=== PATIENT | female | born 1995 | race Caucasian/White ===

== ENCOUNTER 2017-01-24 08:36 | Emergency (ER) | payer BC ==
[2017-01-24] MEDS ORDERED: Ketorolac INJ* 60 MG/2 ML VIAL IM ONE (09:09)
[2017-01-24] MEDS ORDERED: Cephalexin CAP* 500 MG PO ONE (09:10)
[2017-01-24 09:22] VITALS: BP 113/56
--- NOTE | 2017-01-24 09:30 | ED ---
Skin Complaint - HPI Summary HPI Summary: 22 female presents to ED with complaints of a hard, tender nodule in her genital area that began ~ 1 week. Patient states she feels as though it is getting worse. She was seen by [facility] on Thursday who told her it was a bartholin per patient and to apply warm compresses. Patient has been taking ibuprofen, which helps her some. Denies known trauma or injury. Admits to having abrasions in the area however have since healed. Denies any MRSA history. No other PMHx. No medications. No discharge, fever/chills, vaginal symptoms or urinary symptoms. Denies abdominal pain. Has never had anything like this in the past. No other complaints. - History of Current Complaint Chief Complaint: EDGeneral Time Seen by Provider: 01/24/17 08:50 Stated Complaint: ABSCESS Hx Obtained From: Patient Hx Last Menstrual Period: 05/29/15 Onset/Duration: Started Weeks Ago - 1 Skin Exposure Onset/Duration: Weeks Ago - 1 Timing: Constant Onset Severity: Mild Current Severity: Moderate Pain Intensity: 7 Pain Scale Used: 0-10 Numeric - with touching Skin Location: Other: - genitalia Aggravating Symptom(s): Touch Alleviating Symptom(s): Treatment HOME DESIGNER: - warm compresses Associated Signs & Symptoms: Negative - Allergy/Home Medications Allergies/Adverse Reactions: Allergies Allergy/AdvReac Type Severity Reaction Status Date / Time cat dander Allergy Runny Nose Uncoded 06/17/15 12:19 PMH/Surg Hx/FS Hx/Imm Hx Endocrine/Hematology History: Denies: Hx Diabetes, Hx Thyroid Disease Cardiovascular History: Denies: Hx Hypercholesterolemia, Hx Hypertension, Hx Peripheral Vascular Disease Musculoskeletal History: Denies: Hx Arthritis, Hx Rheumatoid Arthritis, Hx Osteoporosis Sensory History: Denies: Hx Cataracts, Hx Contacts or Glasses, Hx Glaucoma Opthamlomology History: Denies: Hx Cataracts, Hx Contacts or Glasses, Hx Glaucoma Neurological History: Denies: Hx Headaches, Hx Seizures, Hx Transient Ischemic Attacks (TIA) Psychiatric History: Reports: Hx Bipolar Disorder Denies: Hx Anxiety, Hx Depression - Surgical History Surgery Procedure, Year, and Place: n/a - Immunization History Immunizations Up to Date: Yes Infectious Disease History: No Infectious Disease History: Denies: Traveled Outside the [place] in Last 30 Days - Family History Known Family History: Positive: None - Social History Alcohol Use: Occasionally Hx Substance Use: No Substance Use Type: Reports: None, Marijuana Substance Use Comment - Amount & Last Used: weekly Hx Tobacco Use: No Smoking Status (MU): Current Some Day Smoker Review of Systems Constitutional: Negative Cardiovascular: Negative Respiratory: Negative Gastrointestinal: Negative Musculoskeletal: Negative Positive: Other - cyst genitalia All Other Systems Reviewed And Are Negative: Yes Physical Exam Triage Information Reviewed: Yes Vital Signs On Initial Exam: Initial Vitals Temp Pulse Resp BP Pulse Ox 98.4 F 69 18 112/57 100 01/24/17 08:42 01/24/17 08:42 01/24/17 08:42 01/24/17 08:42 01/24/17 08:42 Vital Signs Reviewed: Yes Appearance: Positive: Well-Appearing, No Pain Distress, Well-Nourished Skin: Positive: Warm, Skin Color Reflects Adequate Perfusion, Dry, Other - external genitalia: firm nodule/cyst above/region of clitoris, without erythema , warmth, fluctuance. tender to touch. about the size of an almond. rest of exam normal.. Negative: Cold, Numb, Cyanosis @, Pale, Erythema @ Head/Face: Positive: Normal Head/Face Inspection Eyes: Positive: Conjunctiva Clear ENT: Positive: Hearing grossly normal Neck: Positive: Supple, Nontender, No Lymphadenopathy Respiratory/Lung Sounds: Positive: Clear to Auscultation, Breath Sounds Present. Negative: Rales, Rhonchi, Wheezes Cardiovascular: Positive: Normal, RRR, Pulses are Symmetrical in both Upper and Lower Extremities. Negative: Murmur, Rub Abdomen Description: Positive: Nontender, No Organomegaly, Soft. Negative: Bruit, CVA Tenderness (R), CVA Tenderness (L), McBurney's Point Tenderness, Peritoneal Signs Bowel Sounds: Positive: Present Musculoskeletal: Positive: Normal, Strength/ROM Intact Neurological: Positive: Normal, Sensory/Motor Intact, Alert, Oriented to Person Place, Time, CN Intact II-III, Normal Gait - [place] Coma Scale Coma Scale Total: 15 Diagnostics - Vital Signs Vital Signs Temp Pulse Resp BP Pulse Ox 01/24/17 09:22 82 17 113/56 100 01/24/17 09:00 80 113/56 98 01/24/17 08:48 65 100 01/24/17 08:46 112/57 01/24/17 08:42 98.4 F 69 18 112/57 100 - Laboratory Lab Statement: Any lab studies that have been ordered have been reviewed, and results considered in the medical decision making process. Course/Dx - Course Course Of Treatment: given toradol for pain and inflammation. will try trial of keflex. No concern for abscess at this time. Continue warm compresses and pain management. Educated and aware of worsening signs and symptoms. No other symptoms/complaints. Normal vitals and PE findings. Follow up with OBGYN. Understands and agrees with plan. - Differential Diagnoses - Skin Complaint Differential Diagnoses: Abscess, Cellulitis, Other - cyst, bartholin cyst - Diagnoses Provider Diagnoses: Cyst - Physician Notifications Discussed Care Of Patient With: Dr Carmichael Discharge - Discharge Plan Condition: Stable Disposition: HOME Prescriptions: Cephalexin CAP* [Keflex CAP*] 500 mg PO TID #29 cap Patient Education Materials: Cyst (ED) Referrals: Lena Montiel MD [Primary Care Provider] - Gavin Torres MD [Medical Doctor] - Additional Instructions: Take prescribed antibiotic as directed. Ibuprofen/tylenol for pain only as needed, starting tomorrow. Continue warm compresses. Call and make an appointment with OBGYN. Return if any new or worsening symptoms.
== END 2017-01-24 09:20 | disposition home or self-care (01) ==
LOC: ED 08:36
DX: N90.7 Vulvar cyst (principal); F31.9 Bipolar disorder, unspecified; F17.200 Nicotine dependence, unspecified, uncomplicated
CPT/HCPCS: 96372; 99282; A9270-GY; J1885

== ENCOUNTER 2017-01-26 08:58 | Emergency (ER) | payer BC ==
[2017-01-26 10:14] VITALS: BP 114/53
[2017-01-26] MEDS ORDERED: Sulfamethox/Trimethoprim DS 800/160* TAB PO ONE (11:15)
--- NOTE | 2017-01-26 11:42 | ED ---
Skin Complaint - HPI Summary HPI Summary: 22 female presents to ED with complaints of a hard, tender nodule in her genital area that began ~ 1 week ago. Patient states she feels as though it is getting worse over the past 2 days. Was seen She was seen by me in ED two days ago however states it has worsened, red, tender and more swollen. Also admits to having a small amount of drainage. Has been taking prescribed keflex and applying warm compresses. Patient has been taking ibuprofen, which helps her some. Denies known trauma or injury. Denies any MRSA history. No other PMHx. No medications. No discharge, fever/chills, vaginal symptoms or urinary symptoms. Denies abdominal pain. Has never had anything like this in the past. No other complaints. - History of Current Complaint Chief Complaint: EDRashSkinAbscess Time Seen by Provider: 01/26/17 10:35 Stated Complaint: PELVIC PAIN Hx Obtained From: Patient Hx Last Menstrual Period: 05/29/15 Onset/Duration: Started Weeks Ago - 1, Still Present, Worse Since Skin Exposure Onset/Duration: Weeks Ago - 1 Timing: Constant Onset Severity: Moderate Current Severity: Moderate Pain Intensity: 6 Pain Scale Used: 0-10 Numeric Skin Location: Other: - labia Character: Swelling, Redness, Raised, Painful Aggravating Symptom(s): Touch Alleviating Symptom(s): Nothing Associated Signs & Symptoms: Drainage - small amount, not currently - Allergy/Home Medications Allergies/Adverse Reactions: Allergies Allergy/AdvReac Type Severity Reaction Status Date / Time cat dander Allergy Runny Nose Uncoded 01/26/17 09:04 PMH/Surg Hx/FS Hx/Imm Hx Endocrine/Hematology History: Denies: Hx Diabetes, Hx Thyroid Disease Cardiovascular History: Denies: Hx Hypercholesterolemia, Hx Hypertension, Hx Peripheral Vascular Disease Musculoskeletal History: Denies: Hx Arthritis, Hx Rheumatoid Arthritis, Hx Osteoporosis Sensory History: Denies: Hx Cataracts, Hx Contacts or Glasses, Hx Glaucoma Opthamlomology History: Denies: Hx Cataracts, Hx Contacts or Glasses, Hx Glaucoma Neurological History: Denies: Hx Headaches, Hx Seizures, Hx Transient Ischemic Attacks (TIA) Psychiatric History: Reports: Hx Bipolar Disorder Denies: Hx Anxiety, Hx Depression - Surgical History Surgery Procedure, Year, and Place: n/a - Immunization History Immunizations Up to Date: Yes Infectious Disease History: No Infectious Disease History: Denies: Traveled Outside the [place] in Last 30 Days - Family History Known Family History: Positive: None - Social History Alcohol Use: Occasionally Hx Substance Use: No Substance Use Type: Reports: None, Marijuana Substance Use Comment - Amount & Last Used: weekly Hx Tobacco Use: No Smoking Status (MU): Current Some Day Smoker Review of Systems Constitutional: Negative Cardiovascular: Negative Respiratory: Negative Gastrointestinal: Negative Genitourinary: Negative Positive: Other - labial abscess All Other Systems Reviewed And Are Negative: Yes Physical Exam Triage Information Reviewed: Yes Vital Signs On Initial Exam: Initial Vitals Temp Pulse Resp BP Pulse Ox 98.6 F 68 15 118/53 98 01/26/17 09:05 01/26/17 09:05 01/26/17 09:05 01/26/17 09:05 01/26/17 09:05 Vital Signs Reviewed: Yes Appearance: Positive: Well-Appearing - anxious, No Pain Distress, Well-Nourished Skin: Positive: Warm, Skin Color Reflects Adequate Perfusion, Dry, Erythema @ - and firm nodule size of almond noted at left proximal labia, appears more erythematous and edematous than 2 days ago, however no significant abscess with fluctuance appreciated, firm small nodule. no drainage at this time, Other - rest of skin exam normal. Negative: Numb, Cyanosis @, Pale, Weeping Skin/ Lesions Head/Face: Positive: Normal Head/Face Inspection Eyes: Positive: Conjunctiva Clear ENT: Positive: Hearing grossly normal, Pharynx normal, TMs normal Neck: Positive: Supple, Nontender, No Lymphadenopathy Respiratory/Lung Sounds: Positive: Clear to Auscultation, Breath Sounds Present. Negative: Decreased Breath Sounds, Rales, Rhonchi, Wheezes Cardiovascular: Positive: Normal, RRR, Pulses are Symmetrical in both Upper and Lower Extremities. Negative: Murmur, Rub Abdomen Description: Positive: Nontender, Soft Pelvic Exam: Positive: external exam normal - other than abscess noted above Musculoskeletal: Positive: Normal, Strength/ROM Intact Neurological: Positive: Normal, Sensory/Motor Intact, Alert, Oriented to Person Place, Time, Normal Gait - [place] Coma Scale Coma Scale Total: 15 Diagnostics - Vital Signs Vital Signs Temp Pulse Resp BP Pulse Ox 01/26/17 10:11 98.6 F 64 15 114/53 100 01/26/17 09:05 98.6 F 68 15 118/53 98 - Laboratory Lab Statement: Any lab studies that have been ordered have been reviewed, and results considered in the medical decision making process. Course/Dx - Course Course Of Treatment: normal vitals, afebrile, not tachycardic. due to PE findings of firm, small nodule without obvious fluctuance and small in size- ordered ultrasound to determine if there is a fluctuant abscess to be I&D'd however patient stated her OBGYN called and made an appointment for 2pm today and she did not want to wait for the u/s and I&D, if required. was given bactrim dose while in ED. told to continue keflex and take bactrim additionally as it may be MRSA. this may be sufficient to clear infection at this time. no drainage available to culture. patient wanted to leave prior to rest of exam including US and I&D as she wanted to go to the OBGYN. Encouraged to stay as this may be necessary however patient insited on going to have it completed at OBGYN as she did not want to wait. Follow up. Aware of worsening signs and symptoms. continue warm compresses. return if needed. - Differential Diagnoses - Skin Complaint Differential Diagnoses: Abscess, Cellulitis, Other - cyst - Diagnoses Provider Diagnoses: Cellulitis of labia majora, Abscess of labia Discharge - Discharge Plan Condition: Stable Disposition: HOME Prescriptions: Sulfamethox/Trimethoprim DS* [Bactrim DS 800/160 TAB*] 1 tab PO BID #19 tab Patient Education Materials: Abscess (ED), Abscess Follow-up (ED), Cellulitis ( ED) Referrals: No Primary Care Phys,NOPCP [Primary Care Provider] - [facility] [place] [facility] [Outside] Additional Instructions: Take additionally prescribed medication starting at bedtime. Continue taking previously prescribed antibiotics. Continue warm compresses. Follow up with OBGYN at your appointment at 2 today. Any new or worsening signs/symptoms please seek medical attention promptly. This may need to be drained in the near future.
== END 2017-01-26 11:48 | disposition home or self-care (01) ==
LOC: ED 08:58
DX: N76.2 Acute vulvitis (principal); N76.4 Abscess of vulva
CPT/HCPCS: 99282; A9270-GY

== ENCOUNTER 2018-07-18 02:38 | Emergency (ER) | payer BC ==
[2018-07-18 03:35] VITALS: BP 125/72
== END 2018-07-18 03:36 | disposition left against medical advice (07) ==
LOC: ED 02:38
DX: Z53.21 Procedure and treatment not carried out due to patient leaving prior to being seen by health care provider (principal)

== ENCOUNTER 2018-07-18 11:08 | Emergency (ER) | payer BC ==
[2018-07-18 11:19] VITALS: BP 112/59
--- NOTE | 2018-07-18 11:49 | UC ---
Respiratory Complaint HPI - HPI Summary HPI Summary: started feeling sick 5 days ago with URI symps, tried mucinex. since yesterday much worse, now eyes red and R ear painful, also facial pain and frontal headache - History of Current Complaint Chief Complaint: UCRespiratory Stated Complaint: EARPAIN/EYE Time Seen by Provider: 07/18/18 11:25 Hx Obtained From: Patient Hx Last Menstrual Period: 06/13/18 ?: No Onset/Duration: Gradual Onset Timing: Constant Severity Initially: Mild Severity Currently: Moderate Pain Intensity: 5 Character: Cough: Productive Aggravating Factors: Recumbent Position Alleviating Factors: Nothing Associated Signs And Symptoms: Positive: Fever, Nasal Congestion, Sinus Discomfort. Negative: Hemoptysis - Allergies/Home Medications Allergies/Adverse Reactions: Allergies Allergy/AdvReac Type Severity Reaction Status Date / Time cat dander Allergy Runny Nose Uncoded 07/18/18 11:19 PMH/Surg Hx/FS Hx/Imm Hx Previously Healthy: Yes - Surgical History Surgical History: Yes Surgery Procedure, Year, and Place: cyst removed from mouth - Family History Known Family History: Positive: None Negative: Hypertension, Diabetes - Social History Occupation: Employed Part-time, Student Lives: With Family Alcohol Use: Occasionally Substance Use Type: None Substance Use Comment - Amount & Last Used: weekly Smoking Status (MU): Former Smoker Review of Systems All Other Systems Reviewed And Are Negative: Yes Constitutional: Positive: Fatigue Skin: Positive: Negative. Negative: Rash Eyes: Positive: Eye Redness. Negative: Drainage ENT: Positive: Ear Ache, Sinus Congestion, Sinus Pain/Tenderness Respiratory: Positive: Cough Cardiovascular: Positive: Negative Gastrointestinal: Positive: Negative Musculoskeletal: Positive: Negative Neurological: Positive: Headache Psychological: Positive: Negative Is Patient Immunocompromised?: No Physical Exam Triage Information Reviewed: Yes Appearance: Well-Appearing, Well-Nourished Vital Signs: Initial Vital Signs Temp 98 F 07/18/18 11:15 Pulse 83 07/18/18 11:15 Resp 16 07/18/18 11:15 BP 112/59 07/18/18 11:15 Pulse Ox 98 07/18/18 11:15 Vital Signs Reviewed: Yes Eyes: Positive: Conjunctiva Inflamed. Negative: Discharge ENT: Positive: Pharyngeal erythema, Nasal congestion, TM bulging, TM red, Sinus tenderness, Other - PND. Negative: Tonsillar swelling Neck exam: Normal Neck: Positive: No Lymphadenopathy Respiratory Exam: Normal Respiratory: Positive: Lungs clear Cardiovascular Exam: Normal Cardiovascular: Positive: RRR Abdominal Exam: Normal Musculoskeletal Exam: Normal Neurological Exam: Normal Neurological: Positive: Alert Psychological Exam: Normal Skin Exam: Normal Skin: Negative: Rashes Respiratory Course/Dx - Differential Dx/Diagnosis Differential Diagnosis/HQI/PQRI: Influenza, Lower Resp Infection, Sinusitis Provider Diagnosis: Sinusitis, Otitis media Discharge - Sign-Out/Discharge Documenting (check all that apply): Patient Departure All imaging exams completed and their final reports reviewed: No Studies - Discharge Plan Condition: Good Disposition: HOME Prescriptions: Amoxicillin/Clavulanate TAB* [Augmentin TAB 875*] 875 mg PO BID #20 tab Patient Education Materials: Sinusitis (ED) Print Language: BOT[place] Forms: *School Release, *Work Release Referrals: Lavern Sultana NP [Primary Care Provider] - 3 Days (if no better) Additional Instructions: drink plenty of fluids start augmentin antibiotic as prescribed ibuprofen 600mg every 6 hours for fever and pain take sudafed (from behind the counter) - Billing Disposition and Condition Condition: GOOD Disposition: Home - Attestation Statements Provider Attestation: I was available for consult. This patient was seen by the [facility]. The patient was not presented to , seen by or examined by mt -Osiris Gottlieb MD
== END 2018-07-18 12:08 | disposition home or self-care (01) ==
LOC: UCEAST 11:08
DX: J32.9 Chronic sinusitis, unspecified (principal); H66.91 Otitis media, unspecified, right ear; R50.9 Fever, unspecified; R53.83 Other fatigue; R05 Cough; Z87.891 Personal history of nicotine dependence
CPT/HCPCS: 99212; G0463

== ENCOUNTER 2018-07-29 17:48 | Emergency (ER) | payer BC ==
[2018-07-29] MEDS ORDERED: cefTRIAXone VIAL(*) 250 MG VIAL IM ONE (19:08)
[2018-07-29] MEDS ORDERED: Azithromycin TAB* 250 MG PO ONE (19:08)
--- NOTE | 2018-07-29 19:09 | ED ---
GI/ HPI - HPI Summary HPI Summary: Pt is a 23 y/o female who presents to the ED c/o pelvic pain. Shes been having intermittent pelvic pain over the past few months, described as sharp and stabbing. 4 days ago she began having constant pelvic pain, rated a 6/10 in severity. Pt also c/o brown-sabine bloody vaginal discharge, rectal pain, and rectal swelling. Her rectal pain is made worse with BMs. Pt reports mild vaginal pain with sexual activity. She denies any fevers, chills, vaginal itching, vaginal burning, dysuria, CP, or SOB. Pt had chlamydia several years ago and states that these symptoms are similar. She reports having unprotected intercourse several times, with the last time being two months ago. She has taken Advil without relief of pain. Pt is currently still on Amoxicillin for a UTI. LNMP 2 weeks ago, and her menstrual cycle is usually regular. Pt has an IUD. - History of Current Complaint Chief Complaint: EDVaginalBleeding Time Seen by Provider: 07/29/18 19:00 Stated Complaint: BLEEDING AND DISCHARGE FROM GENITALS PER PT Hx Obtained From: Patient Hx Last Menstrual Period: 06/13/18 Onset/Duration: Started Days Ago, Still Present Timing: Constant Current Severity: Moderate Pain Intensity: 6 Location of Pain: Other - pelvic Pain Characteristics: Sharp - stabbing Associated Signs and Symptoms: Positive: Rectal Pain, New Sexual Partner - unprotected sex. Negative: Dysuria Additional Signs & Symptoms: Positive: STD - hx chlamydia, IUD Aggravating Factor(s): Voiding - Allergy/Home Medications Allergies/Adverse Reactions: Allergies Allergy/AdvReac Type Severity Reaction Status Date / Time cat dander Allergy Runny Nose Uncoded 07/29/18 18:03 PMH/Surg Hx/FS Hx/Imm Hx Endocrine/Hematology History: Denies: Hx Diabetes, Hx Thyroid Disease Cardiovascular History: Denies: Hx Hypercholesterolemia, Hx Hypertension, Hx Peripheral Vascular Disease Respiratory History: Reports: Hx Asthma - exercise induced Musculoskeletal History: Denies: Hx Arthritis, Hx Rheumatoid Arthritis, Hx Osteoporosis Sensory History: Denies: Hx Cataracts, Hx Contacts or Glasses, Hx Glaucoma Opthamlomology History: Denies: Hx Cataracts, Hx Contacts or Glasses, Hx Glaucoma Neurological History: Denies: Hx Headaches, Hx Seizures, Hx Transient Ischemic Attacks (TIA) Psychiatric History: Reports: Hx Bipolar Disorder Denies: Hx Anxiety, Hx Depression - Surgical History Surgery Procedure, Year, and Place: cyst removed from mouth Infectious Disease History: No Infectious Disease History: Denies: Traveled Outside the [place] in Last 30 Days - Family History Known Family History: Negative: Hypertension, Diabetes - Social History Alcohol Use: Occasionally Hx Substance Use: No Substance Use Type: Reports: None Substance Use Comment - Amount & Last Used: weekly Hx Tobacco Use: Yes Smoking Status (MU): Former Smoker Review of Systems Negative: Fever, Chills Negative: Chest Pain Negative: Shortness Of Breath Positive: discharge - vaginal - brownish bloody, other - rectal pain, rectal swelling, NEGATIVE: vaginal itching, vaginal burning.. Negative: dysuria Positive: Myalgia - pelvic pain All Other Systems Reviewed And Are Negative: Yes Physical Exam - Summary Physical Exam Summary: Appearance: well appearing, no pain distress Skin: warm, dry, reflects adequate perfusion Head/face: normal Eyes: EOMI, ABBEY ENT: mucous membranes moist Neck: supple, non-tender Respiratory: CTA, breath sounds present Cardiovascular: RRR, pulses symmetrical Abdomen: non-tender, soft Bowel Sounds: present Musculoskeletal: normal, strength/ROM intact Neuro: normal, sensory motor intact, A&Ox3 : purulent discharge, cervix friable, no cervical motion tenderness Triage Information Reviewed: Yes Vital Signs On Initial Exam: Initial Vitals Temp Pulse Resp BP Pulse Ox 98.8 F 84 18 150/90 99 07/29/18 17:57 07/29/18 17:57 07/29/18 17:57 07/29/18 17:57 07/29/18 17:57 Vital Signs Reviewed: Yes Diagnostics - Vital Signs Vital Signs Temp Pulse Resp BP Pulse Ox 07/29/18 17:57 98.8 F 84 18 150/90 99 - Laboratory Lab Statement: Any lab studies that have been ordered have been reviewed, and results considered in the medical decision making process. GIGU Course/Dx - Course Course Of Treatment: Nurse's notes reviewed. Patient is systole active with a history of chlamydia and presents with cervicitis and discharge. She has no cervical motion tenderness or adnexal tenderness. GC/chlamydia swabs were done as well as Trichomonas. She was given presumptive treatment with Rocephin and Zithromax. I'll partner should be treated. Discharged in good condition. - Diagnoses Differential Diagnoses - Female: Pelvic Inflammatory Disease, STD Provider Diagnoses: Acute cervicitis Discharge - Sign-Out/Discharge Documenting (check all that apply): Patient Departure - Discharge Patient Received Moderate/Deep Sedation with Procedure: No - Discharge Plan Condition: Improved Disposition: HOME Patient Education Materials: Sexually Transmitted Diseases (ED), Condom Use (ED ) Referrals: Lavern Sultana NP [Primary Care Provider] - Additional Instructions: Avoid sexual contact for approximately one week. We will call you with positive STD testing. Your partners will need to be treated. Return if worse, increased pelvic pain, fever, new symptoms or other concerns. - Billing Disposition and Condition Condition: IMPROVED Disposition: Home - Attestation Statements Document Initiated by Rhina: Yes Documenting Scribe: Aurelia Byrne Provider For Whom Rhina is Documenting (Include Credential): Abimael Castañeda MD Scribe Attestation: Aurelia Fang, scribed for Abimael Castañeda MD on 07/29/18 at 2231. Scribe Documentation Reviewed: Yes Provider Attestation: The documentation as recorded by the Aurelia davidson accurately reflects the service I personally performed and the decisions made by , Abimael Castañeda MD Status of Scribe Document: Viewed
[2018-07-29] MEDS ORDERED: Lidocaine 2% MPF* 2 ML VIAL ONE (19:45)
[2018-07-29 20:01] VITALS: BP 133/71
[2018-07-30 13:06] LABS: Trichomonas vaginalis Result Negative (Negative)
[2018-07-30 13:16] LABS: Neisseria gonorrhoeae (GC) RNA Negative (Negative)
== END 2018-07-29 19:55 | disposition home or self-care (01) ==
LOC: ED 17:48
DX: N72 Inflammatory disease of cervix uteri (principal); J45.909 Unspecified asthma, uncomplicated; F31.9 Bipolar disorder, unspecified; Z87.891 Personal history of nicotine dependence; Z97.5 Presence of (intrauterine) contraceptive device
CPT/HCPCS: 87480; 87491; 87510; 87591; 87661; 96372; 99282; A9270-GY; J0696

== ENCOUNTER 2018-11-13 09:19 | Emergency (ER) | payer BC ==
--- NOTE | 2018-11-13 09:57 | UC ---
Headache HPI - HPI Summary HPI Summary: Started w/ migraine last night assoc. w/ vomiting. denies vision changes. nothing makes it better/worse. she is on bc. feels that iv fluids usually help her. wears new glasses, no changes to them recently. Has hx of chronic migraines. - History Of Current Complaint Chief Complaint: UCHeadacecil Stated Complaint: HEADACHE Time Seen by Provider: 11/13/18 09:54 Hx Obtained From: Patient Hx Last Menstrual Period: 06/13/18 Character: Throbbing - Allergies/Home Medications Allergies/Adverse Reactions: Allergies Allergy/AdvReac Type Severity Reaction Status Date / Time cat dander Allergy Runny Nose Uncoded 11/13/18 09:53 Home Medications: Home Medications Lisdexamfetamine Dimesylate [Vyvanse] 10 mg PO DAILY PRN 11/13/18 [History Confirmed 11/13/18] Norgestrel/Ethinyl Estrad TAB* [Ogestrel TAB 0.5/0.05*] 1 tab PO DAILY 11/13/18 [History Confirmed 11/13/18] PMH/Surg Hx/FS Hx/Imm Hx Previously Healthy: Yes Neurological History: Migraine - Surgical History Surgical History: Yes Surgery Procedure, Year, and Place: cyst removed from mouth - Family History Known Family History: Negative: Hypertension, Diabetes - Social History Alcohol Use: Occasionally Substance Use Type: None Substance Use Comment - Amount & Last Used: weekly Smoking Status (MU): Former Smoker Review of Systems All Other Systems Reviewed And Are Negative: Yes Constitutional: Negative: Fever Skin: Negative: Rash Eyes: Negative: Blurred Vision ENT: Negative: Sore Throat, Sinus Congestion Respiratory: Negative: Shortness Of Breath Cardiovascular: Negative: Palpitations Neurological: Positive: Headache. Negative: Weakness, Paresthesia, Numbness Physical Exam Triage Information Reviewed: Yes Appearance: Well-Appearing Vital Signs Reviewed: Yes Eyes: Positive: Other: - PERRLA Respiratory Exam: Normal Cardiovascular Exam: Normal Neurological: Positive: Alert, Other: - cn II-XII Psychological: Positive: Age Appropriate Behavior Skin: Negative: Rashes Headache Course/Dx - Course Course Of Treatment: Migraine, acute w/ no neuro deficits. Assoc w/ emesis . she declined benadryl and toradol but accepted zofran. After approx 30 min. she felt improvement. Vitals good and exam ;unremarkable. no neuro involvement. Neg hcg today and UA does not show evidence of infxn or dehydration. Discussed seeing her pcp for chronic migraine tx. - Differential Dx/Diagnosis Differential Diagnosis/HQI/PQRI: Migraine, Sinus Headache, Tension Headache Provider Diagnosis: Migraine Discharge - Sign-Out/Discharge Documenting (check all that apply): Patient Departure All imaging exams completed and their final reports reviewed: No Studies - Discharge Plan Condition: Good Disposition: HOME Patient Education Materials: Migraine Headache (ED) Referrals: Lavern Sultana NP [Primary Care Provider] - Additional Instructions: Please follow up with your primary care doctor to consider treatment for your chronic migraines. - Billing Disposition and Condition Condition: GOOD Disposition: Home
[2018-11-13] MEDS ORDERED: diPHENhydraMINE IV* 50 MG/ML 1 ml VIAL (BENADRYL) IV ONE (10:13)
[2018-11-13] MEDS ORDERED: Ketorolac INJ* 30 MG/ML 1 ML VIAL IM ONE (10:16)
[2018-11-13] MEDS ORDERED: Ondansetron TAB* 4 MG PO ONE (10:17)
[2018-11-13] MEDS ORDERED: NS 0.9% 1000 ML** 1,000 ML IV ONE (10:38)
[2018-11-13] MEDS ORDERED: Ondansetron ODT TAB* 4 MG PO ONE (11:04)
[2018-11-13 11:49] VITALS: BP 118/71
== END 2018-11-13 11:42 | disposition home or self-care (01) ==
LOC: UCEAST 09:19
DX: G43.909 Migraine, unspecified, not intractable, without status migrainosus (principal); Z87.891 Personal history of nicotine dependence
CPT/HCPCS: 81002; 81025; 96360; 99212; A9270-GY; G0463; J1200; J1885

== ENCOUNTER 2019-03-16 17:07 | Emergency (ER) | payer BC ==
--- NOTE | 2019-03-16 17:18 | UC ---
Throat Pain/Nasal Garrett HPI - HPI Summary HPI Summary: 24 yo female presents with sore throat. She tells me that for the last 2 days she has had a sore throat and swollen glands. She has not taken anything OTC for her symptoms. 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 She is eating, drinking, and tolerating po well. Denies fever, chills, rash, cough, abdominal pain, n/v. - History of Current Complaint Stated Complaint: SORE THROAT Time Seen by Provider: 03/16/19 17:18 Hx Obtained From: Patient Hx Last Menstrual Period: 06/13/18 Onset/Duration: Sudden Onset Severity: Moderate Pain Intensity: 5 Pain Scale Used: 0-10 Numeric - Allergies/Home Medications Allergies/Adverse Reactions: Allergies Allergy/AdvReac Type Severity Reaction Status Date / Time cat dander Allergy Runny Nose Uncoded 03/16/19 17:29 Home Medications: Home Medications SUMAtriptan TAB* [Imitrex TAB*] 1 tab PO TID 03/16/19 [History Confirmed ] PMH/Surg Hx/FS Hx/Imm Hx - Additional Past Medical History Additional PMH: [place] ADHD - Surgical History Surgical History: Yes Surgery Procedure, Year, and Place: cyst removed from mouth - Family History Known Family History: Negative: Hypertension, Diabetes - Social History Alcohol Use: Occasionally Substance Use Type: None Substance Use Comment - Amount & Last Used: weekly Smoking Status (MU): Former Smoker Amount Used/How Often: 1 pod/ 2-3 days Length of Time of Smoking/Using Tobacco: vapes Review of Systems All Other Systems Reviewed And Are Negative: No Constitutional: Positive: Negative Skin: Positive: Negative Eyes: Positive: Negative ENT: Positive: Sore Throat Respiratory: Positive: Negative Cardiovascular: Positive: Negative Gastrointestinal: Positive: Negative Neurovascular: Positive: Negative Neurological: Positive: Negative Psychological: Positive: Negative Physical Exam - Summary Physical Exam Summary: GENERAL: NAD. WDWN. No pain distress. SKIN: No rashes, sores, lesions, or open wounds. HEENT: Head: AT/NC Eyes: Conjunctiva clear without inflammation or discharge. Ears: Hearing grossly normal. TMs intact, no bulging, erythema, or edema. Nose: Nasal mucosa pink and moist. NTTP maxillary and frontal sinus. Throat: Posterior oropharynx mild erythema. No tonsillar enlargement. No exudates. Uvula midline. No hoarse voice or muffled voice. NECK: Supple. Tonsillar LAD mildly TTP. CHEST: CTAB. No r/r/w. No accessory muscle use. Breathing comfortably and in no distress. CV: RRR.. Pulses intact. Cap refill <2seconds NEURO: Alert. PSYCH: Age appropriate behavior. Triage Information Reviewed: Yes Vital Signs: Vital Signs: Temp Pulse Resp BP Pulse Ox 99.7 F 68 16 127/69 100 03/16/19 17:21 03/16/19 17:21 03/16/19 17:21 03/16/19 17:21 03/16/19 17:21 Laboratory Tests 03/16/19 17:27 Group A Strep Rapid Positive A Vital Signs Reviewed: Yes Throat Pain/Nasal Course/Dx - Course Course Of Treatment: POC strep negative. Rx for amoxicillin - Differential Dx/Diagnosis Provider Diagnosis: Strep throat Discharge ED - Sign-Out/Discharge Documenting (check all that apply): Patient Departure All imaging exams completed and their final reports reviewed: No Studies - Discharge Plan Condition: Stable Disposition: HOME Prescriptions: Amoxicillin PO (*) [Amoxicillin 500 MG CAP*] 500 mg PO Q12H #20 cap Amoxicillin PO (*) [Amoxicillin 500 MG CAP*] 500 mg PO Q12H #20 cap Patient Education Materials: Strep Throat (ED) Referrals: Maria Ines Newton MD [Primary Care Provider] - Additional Instructions: If you develop a fever, shortness of breath, chest pain, new or worsening symptoms - please call your PCP or go to the ED immediately. - Billing Disposition and Condition Condition: STABLE Disposition: Home
[2019-03-16 17:27] VITALS: BP 127/69
== END 2019-03-16 17:50 | disposition home or self-care (01) ==
LOC: UCEAST 17:07
DX: J02.0 Streptococcal pharyngitis (principal); F90.9 Attention-deficit hyperactivity disorder, unspecified type; Z87.891 Personal history of nicotine dependence; Z91.09 Other allergy status, other than to drugs and biological substances
CPT/HCPCS: 87651; 99212; G0463

== ENCOUNTER 2019-05-04 13:34 | Emergency (ER) | payer BC ==
[2019-05-04 14:28] VITALS: BP 106/52
--- NOTE | 2019-05-04 15:25 | UC ---
Throat Pain/Nasal Garrett HPI - HPI Summary HPI Summary: 24-year-old woman comes in with chief complaint of sore throat. She's had about 10 days of sinusitis symptoms which are improving some. She still has postnasal drip. She did have yellow rhinorrhea. Throat hurts more when she swallows. Is also complaining of anterior neck lymphadenopathy. She has been fatigued recently. She does report that she is quite often tired. No complaint of any chest congestion. - History of Current Complaint Chief Complaint: UCRespiratory Stated Complaint: ST Time Seen by Provider: 05/04/19 15:12 Hx Last Menstrual Period: 05/01/19 Pain Intensity: 5 - Allergies/Home Medications Allergies/Adverse Reactions: Allergies Allergy/AdvReac Type Severity Reaction Status Date / Time cat dander Allergy Runny Nose Uncoded 05/04/19 14:23 Home Medications: Home Medications Bcp 1 cap DAILY 05/04/19 [History Confirmed 05/04/19] PMH/Surg Hx/FS Hx/Imm Hx Previously Healthy: Yes - Surgical History Surgical History: Yes Surgery Procedure, Year, and Place: cyst removed from mouth - Family History Known Family History: Negative: Hypertension, Diabetes - Social History Alcohol Use: Weekly Substance Use Type: None Substance Use Comment - Amount & Last Used: weekly Smoking Status (MU): Former Smoker Amount Used/How Often: 1 pod/ 2-3 days Length of Time of Smoking/Using Tobacco: vapes Review of Systems All Other Systems Reviewed And Are Negative: Yes Constitutional: Positive: Other - see hpi Skin: Positive: Negative Eyes: Positive: Negative ENT: Positive: Sore Throat, Nasal Discharge, Sinus Congestion Respiratory: Positive: Negative Cardiovascular: Positive: Negative Gastrointestinal: Positive: Negative Motor: Positive: Negative Neurovascular: Positive: Negative Musculoskeletal: Positive: Negative Neurological: Positive: Negative Psychological: Positive: Negative Is Patient Immunocompromised?: No Physical Exam Triage Information Reviewed: Yes Appearance: Well-Appearing, No Pain Distress, Well-Nourished Vital Signs: Initial Vital Signs Temp 98.3 F 05/04/19 14:25 Pulse 62 05/04/19 14:25 Resp 16 05/04/19 14:25 BP 106/52 05/04/19 14:25 Pulse Ox 100 05/04/19 14:25 Vital Signs Reviewed: Yes Eye Exam: Normal Eyes: Positive: Conjunctiva Clear ENT: Positive: Pharyngeal erythema, Nasal congestion, TMs normal, Uvula midline. Negative: Tonsillar swelling, Muffled voice, Hoarse voice Neck: Positive: Supple, Tenderness @ - Anterior bilateral right is larger than left Respiratory: Positive: Lungs clear, Normal breath sounds, No respiratory distress Cardiovascular: Positive: RRR Musculoskeletal: Positive: Strength Intact, ROM Intact Neurological: Positive: Alert, Muscle Tone Normal Psychological: Positive: Age Appropriate Behavior Skin Exam: Normal Throat Pain/Nasal Course/Dx - Course Course Of Treatment: Strep was negative. Patient does have postnasal drip from her sinuses. She's had 10 days of sinus congestion and therefore we'll treat for sinusitis and pharyngitis. We discussed mononucleosis. At this time patient declined getting tested. Plan is to treat with a cephalosporin and as long as the patient gets better to include her lymph nodes going back to normal she can follow-up with her primary care doctor as needed. Did let her know that if she did not get better she got worse she should get reevaluated. Also she did feel better but her lymph nodes that large she should get reevaluated if that also. - Differential Dx/Diagnosis Provider Diagnosis: Sinusitis, Pharyngitis Discharge ED - Sign-Out/Discharge Documenting (check all that apply): Patient Departure All imaging exams completed and their final reports reviewed: No Studies - Discharge Plan Condition: Stable Disposition: HOME Prescriptions: Cefdinir [Cefdinir 300 MG CAP] 300 mg PO BID #20 cap Patient Education Materials: Pharyngitis (ED), Sinusitis (ED) Referrals: Maria Ines Newton MD [Primary Care Provider] - Additional Instructions: FOLLOW UP WITH YOUR DOCTOR IF NOT COMPLETELY IMPROVED. GET REEVALUATED SOONER IF NOT IMPROVING OR WORSE OR ANY QUESTIONS OR CONCERNS. - Billing Disposition and Condition Condition: STABLE Disposition: Home
== END 2019-05-04 15:30 | disposition home or self-care (01) ==
LOC: UCCORT 13:34
DX: J32.9 Chronic sinusitis, unspecified (principal); J02.9 Acute pharyngitis, unspecified; R09.81 Nasal congestion; Z87.891 Personal history of nicotine dependence; Z91.09 Other allergy status, other than to drugs and biological substances
CPT/HCPCS: 87651; 99212; G0463